=== PATIENT | female | born 1975 | race Caucasian/White ===

== ENCOUNTER 2023-03-13 19:53 | Emergency (ER) | payer BC, SELFPAY ==
[2023-03-13] VITALS (11 sets, daily range): BP systolic 176–196; BP diastolic 88–109; PULSE 56–76; RESP 11–23; TEMP 36.7; O2SAT 97–100
--- NOTE | 2023-03-13 20:28 | ED.GENADULT ---
HPI - General Adult General Chief complaint: Unspecified Stated complaint: High BP Time Seen by Provider: 03/13/23 20:28 History of Present Illness HPI narrative: 47-year-old female patient is here with complaints of elevated blood pressure and headache. Patient states that she has had high blood pressure for 20 or years and has been off and on med occasions for the same. For the last 2-3 years she has not had any medications but her blood pressure has been around 140/90. She apparently was recently seen by her primary care doctor for a refill of her Tylenol with codeine for chronic back pain and was noted to have extremely high blood pressure at which time she was started on lisinopril 20 mg. She has taken a total of 3 doses so far. She states that she was advised to check her blood pressure 3 times in a row every time she felt unwell. So today she has been checking the blood pressure more frequently and it has been very fluctuant and mostly on the high side. She describes the headache is diffuse and is not associated with any visual or hearing problems. She has had no associated nausea. She does take Aleve for the same. Patient admits to being under lot of stress and has anxiety problem. She states that she usually takes med still marijuana and gross her own. She has been smoking it and now is needing to use an inhaler because of the wheezing that it has caused her. She has had chronic back pain since an accident 20 years ago and was initially on Vicodin but has been on Tylenol No. 3 for several years now. The patient also admits to being stressed out about having lost her brother 19 years ago on her birthday to leukemia and she states that she has always feeling depressed about that. She has not had any formal counseling. Related Data Home Medications Medication Instructions Recorded Confirmed acetaminophen 300 mg-codeine 30 mg 300 tablet PO PRN 03/13/23 03/13/23 tablet lisinopril 20 mg tablet (Zestril) 20 mg PO DAILY 03/13/23 03/13/23 tizanidine 4 mg tablet (Zanaflex) 4 mg DAILY 03/13/23 03/13/23 Allergies Allergy/AdvReac Type Severity Reaction Status Date / Time No Known Allergies Allergy Verified 03/13/23 20:37 Review of Systems Review of Systems: All systems reviewed & are unremarkable except as noted in HPI and below [facility] Past Medical History Medical History (Updated 03/13/23 @ 22:00 by Shyla Keating MD) Chronic low back pain Hypertension Social History Social History (Updated 03/13/23 @ 21:22 by Shyla Keating MD) Smoking status: Former smoker Tobacco type: cigarettes Alcohol intake: current Drinks per week: 5 ( 1 beer with dinner ) Substance use: current Substance use type: marijuana Last use: daily Living arrangements: with family Gender identity (if verbalized by the patient): Female Sexual Orientation (if Verbalized by the Patient): Straight or Heterosexual Exam Narrative: The patient is alert and appears very anxious but is not in any acute. Vital signs are noted to be abnormal for very elevated blood pressure which started with 196/109 and it still continues to remain high. Pulse rate has been between 58 and 64. Respirations are 20. O2 sat is 98-100% on room air. Patient is afebrile. HEENT: normocephalic. Pupils midsize equal and reactive to light. EOMs are intact. Ear nose throat are normal. Neck is supple. Lungs are clear bilaterally. Heart tones are regular. Abdomen is soft and nontender. Extremities are within normal limits. Skin is warm and dry with normal turgor. Neurologic examination reveals patient to be alert and oriented x4. Id. Her speech is clear. Motor and sensory is intact. Cranial nerves are intact. Patient is anxious and very tearful. Course Course Emergency Course: Labs have been reviewed. They are essentially unremarkable. Patient's headache is better after Toradol. She has received 1.25 mg of enalaprilat
[2023-03-13] MEDS: KETOROLAC 30 MG/ML VIAL (*BKC) IV PUSH (21:02)
[2023-03-13 21:15] LABS: Basophils Absolute Auto 0.04 K/mm3 (0.00-0.10); Basophils Percent Auto 0.4 % (0.0-1.0); Eosinophils Absolute Auto 0.44 K/mm3 (0.02-0.50); Eosinophils Percent Auto 4.1 % (1.0-6.0); Hematocrit 39.6 % (35.0-49.0); Immature Granulocyte Absolute 0.03 K/mm3 (0.00-0.00); Immature Granulocyte Percent A 0.3 % (0.0-0.0); Lymphocytes Percent Auto 24.2 % (18.0-42.0); Mean Corpuscular HGB Conc 32.8 g/dL (32.0-36.0); Mean Corpuscular Volume 94.3 fL (78.0-102.0); Mean Platelet Volume 10.7 fl (9.2-11.8); Monocytes Absolute Auto 0.71 K/mm3 (0.10-0.90); Monocytes Percent Auto 6.6 % (2.0-11.0); Neutrophils Absolute Auto 6.9 K/mm3 (1.7-7.2); Neutrophils Percent Auto 64.4 % (50.0-70.0); Platelet Count Result 197 K/mm3 (150-420); Red Cell Distribution Width 12.8 % (11.6-14.4); White Blood Count 10.8 K/mm3 (4.8-10.8)
[2023-03-13 21:16] LABS: Appearance Urine Clear (Clear); Bilirubin Urine Negative (Negative); Blood Urine Negative (Negative); Color Urine Light Yellow (Yellow); Glucose Urine UA Negative (Negative); Ketones Urine Negative (Negative); Leukocyte Esterase Ur Negative (Negative); Nitrate Urine Negative (Negative); Protein Urine Negative (Negative); Specific Grav Ur <= 1.005 (1.010-1.020); Urobilinogen Urine 0.2 mg/dL (0.2-1.0)
[2023-03-13 21:27] LABS: Add Urine Microscopic? NO
[2023-03-13 21:29] LABS: Alanine Aminotransferase 22 U/L (14-59); Alkaline Phosphatase 71 U/L (46-116); Anion Gap 10 mmol/L (8-16); Aspartate Amino Transferase 10 U/L (15-37); Bilirubin,Total 0.2 mg/dL (0.00-1.00); Blood Urea Nitrogen 20 mg/dL (7-18); Calcium 8.9 mg/dL (8.5-10.1); Carbon Dioxide 28 mmol/L (21-32); Chloride 101 mmol/L (98-108); Estimated Glomerular Filt Rate > 60; Glucose 108 mg/dL (70-99); Osmolality Calculated 291 mOsm/kg (285-295); Potassium 4.1 mmol/L (3.5-5.1); Sodium 139 mmol/L (136-145); Total Protein 7.4 g/dL (6.4-8.2)
[2023-03-13] MEDS: ENALAPRILAT 2.5 MG/2 ML VIAL 1.25 MG IV PUSH (21:29)
== END 2023-03-13 22:09 | disposition home or self-care (01) ==
PROVIDERS: Emergency Provider Emergency Medicine; PCP Family Medicine
DX: I10 Essential (primary) hypertension (principal); F41.9 Anxiety disorder, unspecified; M54.9 Dorsalgia, unspecified; G89.29 Other chronic pain; Z79.891 Long term (current) use of opiate analgesic; F12.90 Cannabis use, unspecified, uncomplicated; Z87.891 Personal history of nicotine dependence
CPT/HCPCS: 36415; 80053; 81003; 85025; 96374; 96375; 99284; J1885

== ENCOUNTER 2023-05-05 09:05 | Emergency (ER) | payer BC, SELFPAY ==
--- NOTE | ~2023-05-05 | CT_ITS ---
EXAMINATION: CT abdomen pelvis w con DATE: 05/05/2023 10:35 INDICATION: Left flank pain, nausea and chills TECHNIQUE: Computed tomography (CT) of the abdomen and pelvis was performed with 100 mL Omnipaque-350 intravenous contrast. Automated exposure control and iterative reconstruction technique were employe d. The dose-length product was 1182.76 mGy-cm. COMPARISON: None FINDINGS: Lung bases are clear. Heart size is normal. No pericardial or pleural effusion. Liver, spleen, pancre as, bilateral adrenal glands and left kidney are normal. Right kidney is normal aside from a more hor izontal orientation than typical. Tiny fat-containing umbilical hernia. Bladder, anteverted uterus an d right ovary are normal. 1.9 cm peripherally enhancing likely corpus luteum cyst at the left ovary. Mild scattered diverticulosis with descending and sigmoid colon predominance adjacent from trace stra nding to suggest diverticulitis. Small bowel and appendix are normal. No free intraperitoneal gas or fluid. No pathologically enlarged abdominal or pelvic lymphadenopathy. Severe spondylosis at L5-S1 an d moderate bilateral sacroiliac osteoarthritis. Otherwise mild scattered degenerative skeletal change s. IMPRESSION: 1. 1.9 cm peripherally enhancing likely corpus luteum cyst at the left ovary. No evident urolithiasis for other acute intra-abdominal/pelvic process. 2. Diverticulosis. Reviewed, dictated and finalized at location A. IMPRESSION: 1. 1.9 cm peripherally enhancing likely corpus luteum cyst at the left ovary. N o evident urolithiasis for other acute intra-abdominal/pelvic process. 2. Diverticulosis.
[2023-05-05 09:14] VITALS: BP 129/91; PULSE 76; RESP 17; TEMP 36.9; O2SAT 100
[2023-05-05 09:23] VITALS: BP 129/91; PULSE 70; RESP 20; TEMP 36.9; O2SAT 100
--- NOTE | 2023-05-05 09:29 | ECG_ITS ---
Measurements Intervals [place] Rate: 65 P: 41 TX: 135 QRS: 60 QRSD: 78 T: 31 QT: 418 QTc: 436 Interpretive Statements SINUS RHYTHM DELAYED PRECORDIAL R/S TRANSITION BASELINE ARTIFACT- I, II, III, AVR, AVL, AVF, V1-V6 BORDERLINE ECG NO PREVIOUS ECG AVAILABLE FOR COMPARISON Electronically Signed On 05-05-2023 9:48:07 CDT by Soto Mobley D.O.
[2023-05-05 09:43] LABS: Appearance Urine Clear (Clear); Bilirubin Urine Negative (Negative); Blood Urine Trace-Intact (Negative); Color Urine Light Yellow (Yellow); Glucose Urine UA Negative (Negative); Ketones Urine Negative (Negative); Leukocyte Esterase Ur Negative LEU/UL (Negative); Nitrate Urine Negative (Negative); Protein Urine Negative (Negative); Specific Grav Ur 1.015 (1.010-1.020); Urobilinogen Urine 0.2 mg/dL (0.2-1.0)
[2023-05-05 09:44] LABS: Add Urine Microscopic? YES; Bacteria Urine 1+ /hpf; Squamous Epithelial Cell Urine Moderate /hpf (Few); WBC Urine None seen /hpf (0-3)
[2023-05-05] MEDS: SODIUM CHLORIDE 0.9% IV 1,000 ML 999 ML IV CONT (09:47)
[2023-05-05] MEDS: ONDANSETRON INJ 4 MG/2 ML VIAL IV PUSH (09:49)
[2023-05-05] MEDS: KETOROLAC 30 MG/ML VIAL (*BKC) IV PUSH (09:50)
[2023-05-05 09:52] LABS: Basophils Absolute Auto 0.04 K/mm3 (0.00-0.10); Basophils Percent Auto 0.4 % (0.0-1.0); Eosinophils Absolute Auto 0.26 K/mm3 (0.02-0.50); Eosinophils Percent Auto 2.7 % (1.0-6.0); Hematocrit 37.2 % (35.0-49.0); Hemoglobin 12.3 g/dL (12.0-15.0); Immature Granulocyte Absolute 0.03 K/mm3 (0.00-0.00); Immature Granulocyte Percent A 0.3 % (0.0-0.0); Lymphocytes Percent Auto 22.1 % (18.0-42.0); Mean Corpuscular HGB Conc 33.1 g/dL (32.0-36.0); Mean Corpuscular Hemoglobin 31.1 pg (27.0-31.0); Mean Corpuscular Volume 93.9 fL (78.0-102.0); Mean Platelet Volume 10.3 fl (9.2-11.8); Monocytes Absolute Auto 0.29 K/mm3 (0.10-0.90); Monocytes Percent Auto 3.1 % (2.0-11.0); Neutrophils Absolute Auto 6.8 K/mm3 (1.7-7.2); Neutrophils Percent Auto 71.4 % (50.0-70.0); Platelet Count Result 230 K/mm3 (150-420); Red Blood Count 3.96 M/mm3 (4.20-5.40); Red Cell Distribution Width 12.9 % (11.6-14.4); White Blood Count 9.5 K/mm3 (4.8-10.8)
[2023-05-05 09:55] LABS: Pregnancy On Board Control Positive; Urine Pregnancy Test Negative
[2023-05-05 10:00] VITALS: BP 122/83; PULSE 61; RESP 18; O2SAT 98
[2023-05-05 10:12] LABS: Alanine Aminotransferase 32 U/L (14-59); Albumin Level 3.7 g/dL (3.4-5.0); Alkaline Phosphatase 79 U/L (46-116); Anion Gap 12 mmol/L (8-16); Aspartate Amino Transferase 12 U/L (15-37); Bilirubin,Total 0.3 mg/dL (0.00-1.00); Blood Urea Nitrogen 11 mg/dL (7-18); Calcium 8.7 mg/dL (8.5-10.1); Carbon Dioxide 24 mmol/L (21-32); Chloride 102 mmol/L (98-108); Estimated CRCL calculation 78 ml/min; Estimated Glomerular Filt Rate > 60; Glucose 168 mg/dL (70-99); Lipase 27 U/L (16-77); Osmolality Calculated 289 mOsm/kg (285-295); Potassium 3.9 mmol/L (3.5-5.1); Sodium 138 mmol/L (136-145); Total Protein 7.6 g/dL (6.4-8.2); Troponin I 12.3 ng/L (0.00-60.4)
[2023-05-05 10:13] LABS: Lactic Acid Reflex 2.5 mmol/L (0.4-2.0)
[2023-05-05 10:22] LABS: Influenza A QL RT-PCR Negative (Negative); Influenza B QL RT-PCR Negative (Negative); SARS-CoV-2 RNA PCR Negative (Negative)
[2023-05-05 10:30] VITALS: BP 122/79; PULSE 61; RESP 17; O2SAT 99
[2023-05-05 10:36] LABS: RSV RNA, RT-PCR Negative (Negative)
--- NOTE | 2023-05-05 10:57 | ED.ABDPAIN ---
HPI - Abdominal Pain General Chief Complaint: Urogenital-Female Stated Complaint: lower left flank pain Time Seen by Provider: 05/05/23 09:29 Source: patient Mode of arrival: ambulatory Limitations: no limitations History of Present Illness HPI narrative: this is a 47-year-old female that has a 2 day history of abdominal pain in the left flank area and radiating into her left low quadrant with some mild nausea no fever chills no dysuria no hematuria no chest pain or shortness of breath. MD elicited complaint: abdominal pain and flank pain Pertinent past history: none Onset (ago): day(s) Pain Consistency: intermittent Location: periumbilical and L flank Related Data Home Medications Medication Instructions Recorded Confirmed acetaminophen 300 mg-codeine 30 mg 300 tablet PO PRN 03/13/23 05/05/23 tablet tizanidine 4 mg tablet (Zanaflex) 4 mg DAILY 03/13/23 05/05/23 amlodipine 10 mg tablet 10 mg PO DAILY 05/05/23 05/05/23 Allergies Allergy/AdvReac Type Severity Reaction Status Date / Time Sulfa (Sulfonamide Allergy Hives Verified 05/05/23 09:13 Antibiotics) Review of Systems Review of Systems: All systems reviewed & are unremarkable except as noted in HPI and below PMFSH Past Medical History Medical History Chronic low back pain Hypertension Social History Social History Smoking status: Former smoker Tobacco type: cigarettes Alcohol intake: current Drinks per week: 5 ( 1 beer with dinner ) Substance use: current Substance use type: marijuana Last use: daily Living arrangements: with family Gender identity (if verbalized by the patient): Female Sexual Orientation (if Verbalized by the Patient): Straight or Heterosexual Exam Const: General: healthy appearing Nutritional Appearance: well nourished HENMT: Head: normal to inspection Neck: Neck: normal visual inspection Chest: Chest palpation & inspection: normal inspection of the chest Resp: Effort & Inspection: normal respiratory effort Auscultation: clear to auscultation bilaterally Cardio: Rate: regular rate Rhythm: regular rhythm GI: GI Palp: Yes Soft to palpation and Yes Tenderness to palpation present (GI) : General: Yes bladder normal to palpation Back/Spine/Pelvis: Back: CVA tenderness Skin: General skin exam: normal color Rashes: no rashes Neuro: General: patient oriented x3 and moves all extremities Psych: Mental Status: mental status grossly normal Affect: normal affect Course Course Emergency Course: Patient received IV fluids and IV Toradol and Zofran patient did state that her discomfort has improved, patient had a CT scan with contrast which showed a 1.9 left ovarian luteal cyst otherwise diverticulosis with no evidence of diverticulitis no evidence of appendicitis no CT kidney stones or ureter stones and this was explained with to the patient. Blood work was showed a normal white blood cell count her CMP was reviewed and within normal limits. Patient did not seem satisfied with the results and advise that she follow-up with her rn obgyn / primary for further evaluation. Vital Signs Vital signs: Vital Signs Temperature 36.9 C 05/05/23 09:14 Pulse Rate 76 05/05/23 09:14 Respiratory Rate 17 05/05/23 09:14 Blood Pressure 129/91 H 05/05/23 09:14 Pulse Oximetry 100 05/05/23 09:14 Oxygen Delivery Room Air 05/05/23 09:14 Temperature 36.9 C 05/05/23 09:23 Pulse Rate 70 05/05/23 09:23 Respiratory Rate 20 05/05/23 09:23 Blood Pressure 129/91 H 05/05/23 09:23 Pulse Oximetry 100 05/05/23 09:23 Oxygen Delivery Room Air 05/05/23 09:23 MDM - Abdominal Pain Lab Data 05/05/23 09:47 05/05/23 09:47 Labs: Lab Results 05/05/23 05/05/23 05/05/23 Range/Units 09:12 09:27 09:42 WBC (4.8-10.8) K/mm3 RBC (4.20-
[2023-05-05 11:08] VITALS: BP 125/80; PULSE 70; RESP 17; TEMP 36.6; O2SAT 100
[2023-05-05 12:49] LABS: Reflex Lactic Acid Yes or No Add Lactic
== END 2023-05-05 11:08 | disposition home or self-care (01) ==
PROVIDERS: Emergency Provider Emergency Medicine; PCP Family Medicine
DX: N83.202 Unspecified ovarian cyst, left side (principal); I10 Essential (primary) hypertension; Z87.891 Personal history of nicotine dependence; Z20.822 Contact with and (suspected) exposure to COVID-19
CPT/HCPCS: 36415; 74177; 80053; 81001; 81025; 83605; 83690; 84484; 85025; 85610; 85730; 87637; 93005; 96361; 96374; 96375; 99284; J1885; J2405; J7030; Q9967